=== PATIENT | male | born 1955 | race African-American/Black ===

== ENCOUNTER 2021-02-21 17:44 | Emergency (ER) | payer MEDICAID ==
[~2021-02-21] VITALS: Ht 177.8 cm; Wt 68.0 kg
[2021-02-21] MEDS ORDERED: IBUPROFEN 400MG TABLET PO ONE (19:00)
[2021-02-21] MEDS ORDERED: ACET-2708 MT (19:29)
[2021-02-21 20:32] VITALS: BP 111/74
== END 2021-02-21 20:31 | disposition home or self-care (01) ==
LOC: ER 17:44
DX: M79.672 Pain in left foot (principal); M79.671 Pain in right foot; R03.0 Elevated blood-pressure reading, without diagnosis of hypertension; Z59.0 Homelessness
CPT/HCPCS: 99283

== ENCOUNTER 2021-07-28 17:12 | Inpatient (IN) | payer MEDICAID ==
[~2021-07-28] VITALS: Ht 177.8 cm; Wt 62.1 kg
[~2021-07-28 17:12] MED LIST: ACET-2708 MT
[2021-07-28] MEDS ORDERED: PIPERACILLIN/TAZ 3.375G PREMIX 50 ML IV ONE (18:30)
[2021-07-28] MEDS ORDERED: SODIUM CHLORIDE 0.9% 1000ML BAG (SEPSIS BOLUS) IV ONE (18:30)
[2021-07-28] MEDS ORDERED: CLINDAMYCIN 600 MG in DEXTROSE 5% WATER 50 ML IV ONE (18:30)
[2021-07-28] MEDS ORDERED: VANCOMYCIN 1 G PREMIX 200 ML IV ONE (18:30)
[2021-07-28] MEDS ORDERED: CLINDAMYCIN 600MG PREMIX 50 ML IV SCH (18:30)
[2021-07-28 19:16] LABS: HEMATOCRIT. 30.1 % (42.0-52.0); HEMOGLOBIN. 10.3 g/dL (14.0-18.0); MEAN CORPUSCULAR HEMOGLOBIN 31.5 pg (28.0-32.0); MEAN CORPUSCULAR VOLUME 92.1 fL (80.0-94.0); MEAN PLATELET VOLUME 9.8 fl (7.4-10.4); PLATELET 309 x1000/uL (130-400); RED BLOOD CELL COUNT 3.27 mill/uL (4.7-6.1); RED CELL DISTRIBUTION WIDTH 11.5 % (11.6-14.6)
[2021-07-28 19:25] LABS: CHLORIDE 95 mEq/L (98-107)
[2021-07-28 19:28] LABS: ETHANOL BLOOD < 10 mg/dL; INR 1.1; PARTIAL THROMBOPLASTIN TIME 28.2 sec (23.4-31.0); PROTHROMBIN TIME 11.4 sec (9.6-11.0)
[2021-07-28] MEDS ORDERED: INSULIN REGULAR (HUMULIN R) 300UNITS/3ML VIAL SUBCUT ONE (20:00)
[2021-07-28 20:30] LABS: PLATELET ESTIMATE NORMAL
[2021-07-29] VITALS (7 sets, daily range): BP systolic 117–151; BP diastolic 75–86
[2021-07-29] MEDS ORDERED: DEXTROSE 50% WATER 50ML SYRINGE IV PRN (01:30)
[2021-07-29] MEDS ORDERED: NALOXONE HCL 0.4MG/ML VIAL IV PRN (02:00)
[2021-07-29] MEDS: PIPERACILLIN/TAZOBACTAM 3.375 G in DEXTROSE 5% WATER 50 ML IV SCH ×3 (05:38→22:54)
[2021-07-29] MEDS: VANCOMYCIN 750 MG PREMIX 150 ML IV SCH ×3 (05:38→20:19)
[2021-07-29 06:47] LABS: BASOPHILS % 0.5 % (0.0-2.0); EOSINOPHILS % 0.4 % (0.0-5.0); HEMATOCRIT. 29.3 % (42.0-52.0); HEMOGLOBIN. 10.1 g/dL (14.0-18.0); LYMPHOCYTES % 7.2 % (20.0-50.0); MEAN CORPUSCULAR HEMOGLOBIN 31.7 pg (28.0-32.0); MEAN CORPUSCULAR VOLUME 91.8 fL (80.0-94.0); MEAN PLATELET VOLUME 9.5 fl (7.4-10.4); MONOCYTES % 6.7 % (2.0-8.0); NEUTROPHILS % 85.2 % (40.0-76.0); PLATELET 287 x1000/uL (130-400); RED BLOOD CELL COUNT 3.19 mill/uL (4.7-6.1); RED CELL DISTRIBUTION WIDTH 11.7 % (11.6-14.6)
[2021-07-29 06:52] LABS: CHLORIDE 102 mEq/L (98-107)
[2021-07-29 07:00] LABS: HDL CHOLESTEROL 14 mg/dL (40-59)
[2021-07-29 07:05] LABS: LDL CHOLESTEROL 73 mg/dL (5-100)
[2021-07-29] MEDS: BLOOD SUGAR DIAGNOSTIC STRIP TEST SCH ×4 (07:23→20:20)
[2021-07-29] MEDS: INSULIN LISPRO 100 UNITS/ML SUBCUT SCH ×4 (07:59→20:20)
[2021-07-29] MEDS: INSULIN GLARGINE UD 100 UNITS/ML SYR SUBCUT SCH ×2 (10:05→22:54)
[2021-07-29] MEDS: ACETAMINOPHEN 325MG TABLET PO PRN (16:33)
[2021-07-29] MEDS: ENOXAPARIN 40MG/0.4ML SYR SUBCUT SCH (20:20)
[2021-07-29] MEDS: HYDROCODONE/ACETAMINOPHEN 5/325MG TABLET PO PRN (20:38)
[2021-07-30] VITALS: BP 139/89
[2021-07-30 04:00] VITALS: BP 131/71
[2021-07-30] MEDS: VANCOMYCIN 750 MG PREMIX 150 ML IV SCH ×3 (04:08→21:17)
[2021-07-30 05:31] LABS: HEMATOCRIT. 28.1 % (42.0-52.0); HEMOGLOBIN. 9.5 g/dL (14.0-18.0); MEAN CORPUSCULAR HEMOGLOBIN 31.2 pg (28.0-32.0); MEAN CORPUSCULAR VOLUME 92.3 fL (80.0-94.0); MEAN PLATELET VOLUME 9.6 fl (7.4-10.4); PLATELET 292 x1000/uL (130-400); RED BLOOD CELL COUNT 3.05 mill/uL (4.7-6.1); RED CELL DISTRIBUTION WIDTH 11.8 % (11.6-14.6)
[2021-07-30] MEDS: PIPERACILLIN/TAZOBACTAM 3.375 G in DEXTROSE 5% WATER 50 ML IV SCH ×3 (05:44→22:35)
[2021-07-30 06:07] LABS: CHLORIDE 99 mEq/L (98-107)
[2021-07-30 06:17] LABS: VANCOMYCIN TROUGH 15.6 ug/mL (5.0-10.0)
[2021-07-30] MEDS: BLOOD SUGAR DIAGNOSTIC STRIP TEST SCH ×4 (07:20→20:43)
[2021-07-30 08:10] VITALS: BP 140/80
[2021-07-30] MEDS: INSULIN LISPRO 100 UNITS/ML SUBCUT SCH ×4 (08:26→20:42)
[2021-07-30] MEDS: ACETAMINOPHEN 325MG TABLET PO PRN (08:36)
[2021-07-30] MEDS: INSULIN GLARGINE UD 100 UNITS/ML SYR SUBCUT SCH ×2 (11:36→21:18)
[2021-07-30 12:20] VITALS: BP 128/80
[2021-07-30 15:36] LABS: PLATELET ESTIMATE NORMAL
[2021-07-30 16:00] VITALS: BP 130/76
[2021-07-30 20:00] VITALS: BP 140/81
[2021-07-30] MEDS: ENOXAPARIN 40MG/0.4ML SYR SUBCUT SCH (20:42)
[2021-07-31] VITALS: BP 135/83
[2021-07-31 04:00] VITALS: BP 137/72
[2021-07-31] MEDS: VANCOMYCIN 750 MG PREMIX 150 ML IV SCH ×3 (04:13→20:44)
[2021-07-31] MEDS: PIPERACILLIN/TAZOBACTAM 3.375 G in DEXTROSE 5% WATER 50 ML IV SCH ×3 (05:22→23:19)
[2021-07-31 06:21] LABS: HEMATOCRIT. 29.5 % (42.0-52.0); MEAN CORPUSCULAR HEMOGLOBIN 31.5 pg (28.0-32.0); MEAN CORPUSCULAR VOLUME 92.4 fL (80.0-94.0); MEAN PLATELET VOLUME 9.2 fl (7.4-10.4); PLATELET 302 x1000/uL (130-400); RED BLOOD CELL COUNT 3.19 mill/uL (4.7-6.1)
[2021-07-31 06:27] LABS: CHLORIDE 98 mEq/L (98-107)
[2021-07-31] MEDS: BLOOD SUGAR DIAGNOSTIC STRIP TEST SCH ×4 (07:20→20:45)
[2021-07-31] MEDS: INSULIN LISPRO 100 UNITS/ML SUBCUT SCH ×4 (07:50→20:44)
[2021-07-31] MEDS: INSULIN GLARGINE UD 100 UNITS/ML SYR SUBCUT SCH ×2 (10:00→23:20)
[2021-07-31] MEDS ORDERED: IOHEXOL-350 100 ML BOTTLE ONE (11:56)
[2021-07-31 12:00] VITALS: BP 143/70
[2021-07-31 14:03] LABS: PLATELET ESTIMATE NORMAL
[2021-07-31 16:00] VITALS: BP 128/63
[2021-07-31] MEDS ORDERED: LIDOCAINE HCL 1% 20ML VIAL (Pyxis) INJ ONE (16:30)
[2021-07-31] MEDS ORDERED: POLYMYXIN B SULFATE 500000 UNITS/VIAL ONE (16:30)
[2021-07-31] MEDS ORDERED: BUPIVACAINE HCL/PF 0.5% (5MG/ML) 10ML ONE (16:30)
[2021-07-31] MEDS ORDERED: MIDAZOLAM HCL 2 MG/2 ML VIAL ONE (18:45)
[2021-07-31] MEDS ORDERED: PROPOFOL 200MG/20ML VIAL IV ONE (18:45)
[2021-07-31] MEDS ORDERED: FENTANYL CITRATE/PF 50MCG/ML 2ML VIAL ONE (18:45)
[2021-07-31] MEDS ORDERED: HYDROMORPHONE HCL/PF 2MG/ML CPJ IV PRN (19:00)
[2021-07-31] MEDS ORDERED: ONDANSETRON HCL 4MG/2ML INJ IV PRN (19:00)
[2021-07-31] MEDS ORDERED: MEPERIDINE HCL/PF 25MG/ML CPJ IV PRN (19:00)
[2021-07-31] MEDS ORDERED: LABETALOL 5MG/ML SYR 20 MG/4 ML SYRINGE IV PRN (19:00)
[2021-07-31 20:00] VITALS: BP 134/68
[2021-07-31] MEDS ORDERED: DEXAMETHASONE 4MG/ML 1ML VIAL ONE (20:15)
[2021-07-31] MEDS: ENOXAPARIN 40MG/0.4ML SYR SUBCUT SCH (20:45)
[2021-08-01] VITALS: BP 153/78
[2021-08-01 04:00] VITALS: BP 149/88
[2021-08-01] MEDS: VANCOMYCIN 750 MG PREMIX 150 ML IV SCH ×3 (04:32→21:28)
[2021-08-01 06:09] LABS: CHLORIDE 97 mEq/L (98-107)
[2021-08-01 06:10] LABS: HEMATOCRIT. 30.4 % (42.0-52.0); HEMOGLOBIN. 10.1 g/dL (14.0-18.0); MEAN CORPUSCULAR VOLUME 93.2 fL (80.0-94.0); MEAN PLATELET VOLUME 9.3 fl (7.4-10.4); PLATELET 333 x1000/uL (130-400); RED BLOOD CELL COUNT 3.27 mill/uL (4.7-6.1); RED CELL DISTRIBUTION WIDTH 11.9 % (11.6-14.6)
[2021-08-01] MEDS: PIPERACILLIN/TAZOBACTAM 3.375 G in DEXTROSE 5% WATER 50 ML IV SCH ×3 (06:20→22:42)
[2021-08-01] MEDS: BLOOD SUGAR DIAGNOSTIC STRIP TEST SCH ×4 (07:43→21:28)
[2021-08-01 08:00] VITALS: BP 146/80
[2021-08-01] MEDS: INSULIN LISPRO 100 UNITS/ML SUBCUT SCH ×4 (08:18→21:00)
[2021-08-01] MEDS: INSULIN GLARGINE UD 100 UNITS/ML SYR SUBCUT SCH ×2 (10:23→21:29)
[2021-08-01 12:00] VITALS: BP 112/66
[2021-08-01 14:24] LABS: PLATELET ESTIMATE NORMAL
[2021-08-01 16:00] VITALS: BP 119/78
[2021-08-01 20:00] VITALS: BP 127/76
[2021-08-01] MEDS: ENOXAPARIN 40MG/0.4ML SYR SUBCUT SCH (21:28)
[2021-08-01] MEDS: HYDROCODONE/ACETAMINOPHEN 5/325MG TABLET PO PRN (21:30)
[2021-08-02] VITALS (7 sets, daily range): BP systolic 126–144; BP diastolic 61–83
[2021-08-02] MEDS: VANCOMYCIN 750 MG PREMIX 150 ML IV SCH ×2 (04:16→12:32)
[2021-08-02] MEDS: PIPERACILLIN/TAZOBACTAM 3.375 G in DEXTROSE 5% WATER 50 ML IV SCH ×2 (06:08→15:52)
[2021-08-02] MEDS: BLOOD SUGAR DIAGNOSTIC STRIP TEST SCH ×4 (06:13→21:00)
[2021-08-02] MEDS: INSULIN LISPRO 100 UNITS/ML SUBCUT SCH ×4 (07:37→21:00)
[2021-08-02] MEDS: INSULIN GLARGINE UD 100 UNITS/ML SYR SUBCUT SCH ×2 (09:26→22:00)
[2021-08-02] MEDS ORDERED: LANTUSUD SUBCUT (17:32)
[2021-08-02] MEDS ORDERED: METF-416 MT (17:32)
[2021-08-02] MEDS ORDERED: CEFTRIAXONE 2 G PREMIX 50 ML IV SCH (18:00)
[2021-08-02] MEDS ORDERED: CEFTRIAXONE 2 G in DEXTROSE 5% WATER 50 ML IV SCH (20:00)
[2021-08-02] MEDS: ENOXAPARIN 40MG/0.4ML SYR SUBCUT SCH (22:29)
[2021-08-03] VITALS (7 sets, daily range): BP systolic 104–142; BP diastolic 63–81
[2021-08-03 04:47] LABS: CHLORIDE 101 mEq/L (98-107)
[2021-08-03] MEDS: INSULIN LISPRO 100 UNITS/ML SUBCUT SCH ×4 (05:56→22:10)
[2021-08-03] MEDS: BLOOD SUGAR DIAGNOSTIC STRIP TEST SCH ×4 (05:56→22:30)
[2021-08-03] MEDS: LEVOFLOXACIN 500MG TABLET PO SCH (08:57)
[2021-08-03] MEDS: INSULIN GLARGINE UD 100 UNITS/ML SYR SUBCUT SCH ×2 (09:36→23:38)
[2021-08-03 12:24] LABS: *BARBITURATES SCREEN URINE NEGATIVE (NEGATIVE); *BENZODIAZEPINES SCREEN URINE NEGATIVE (NEGATIVE)
[2021-08-03 12:25] LABS: *AMPHETAMINES SCREEN URINE NEGATIVE (NEGATIVE); *COCAINE SCREEN URINE NEGATIVE (NEGATIVE); CANNABINOID URINE SCREEN NEGATIVE (NEGATIVE); METHADONE URINE SCREEN NEGATIVE (NEGATIVE); OPIATES URINE SCREEN PRESUMTIVE POSITIVE (NEGATIVE); PHENCYCLIDINE URINE SCREEN NEGATIVE (NEGATIVE)
[2021-08-03] MEDS ORDERED: LEVO500T89 MT (14:26)
[2021-08-03] MEDS: ENOXAPARIN 40MG/0.4ML SYR SUBCUT SCH (21:52)
[2021-08-04 05:06] VITALS: BP 144/85
[2021-08-04] MEDS: BLOOD SUGAR DIAGNOSTIC STRIP TEST SCH ×4 (07:20→20:53)
[2021-08-04] MEDS: INSULIN LISPRO 100 UNITS/ML SUBCUT SCH ×4 (07:50→21:10)
[2021-08-04 08:00] VITALS: BP 135/83
[2021-08-04] MEDS: LEVOFLOXACIN 500MG TABLET PO SCH (10:09)
[2021-08-04] MEDS: INSULIN GLARGINE UD 100 UNITS/ML SYR SUBCUT SCH ×2 (10:12→21:09)
[2021-08-04 12:00] VITALS: BP 143/87
[2021-08-04 16:00] VITALS: BP 131/75
[2021-08-04 20:00] VITALS: BP 133/89
[2021-08-04] MEDS: ENOXAPARIN 40MG/0.4ML SYR SUBCUT SCH (21:07)
[2021-08-05] VITALS: BP 132/68
[2021-08-05 04:00] VITALS: BP 148/79
[2021-08-05] MEDS: BLOOD SUGAR DIAGNOSTIC STRIP TEST SCH ×4 (06:58→21:16)
[2021-08-05] MEDS: INSULIN LISPRO 100 UNITS/ML SUBCUT SCH ×4 (07:50→21:00)
[2021-08-05 08:00] VITALS: BP 130/74
[2021-08-05] MEDS: LEVOFLOXACIN 500MG TABLET PO SCH (09:35)
[2021-08-05] MEDS: INSULIN GLARGINE UD 100 UNITS/ML SYR SUBCUT SCH ×2 (09:41→21:19)
[2021-08-05 12:00] VITALS: BP 124/95
[2021-08-05 16:00] VITALS: BP 148/78
[2021-08-05 20:00] VITALS: BP 120/74
[2021-08-05] MEDS: ENOXAPARIN 40MG/0.4ML SYR SUBCUT SCH (21:18)
[2021-08-06] VITALS: BP 117/60
[2021-08-06 04:00] VITALS: BP 152/67
[2021-08-06] MEDS: BLOOD SUGAR DIAGNOSTIC STRIP TEST SCH ×4 (06:33→20:59)
[2021-08-06] MEDS: INSULIN LISPRO 100 UNITS/ML SUBCUT SCH ×4 (07:50→21:00)
[2021-08-06 08:00] VITALS: BP 124/80
[2021-08-06] MEDS: LEVOFLOXACIN 500MG TABLET PO SCH (09:47)
[2021-08-06] MEDS: INSULIN GLARGINE UD 100 UNITS/ML SYR SUBCUT SCH ×2 (09:48→21:05)
[2021-08-06 12:00] VITALS: BP 136/98
[2021-08-06 16:00] VITALS: BP 143/77
[2021-08-06 20:00] VITALS: BP 127/77
[2021-08-06] MEDS: ENOXAPARIN 40MG/0.4ML SYR SUBCUT SCH (20:59)
[2021-08-07] VITALS: BP 109/66
[2021-08-07 04:00] VITALS: BP 112/72
[2021-08-07] MEDS: BLOOD SUGAR DIAGNOSTIC STRIP TEST SCH ×2 (06:25→12:20)
[2021-08-07] MEDS: INSULIN LISPRO 100 UNITS/ML SUBCUT SCH ×2 (07:50→12:50)
[2021-08-07 08:00] VITALS: BP 144/82
[2021-08-07] MEDS: LEVOFLOXACIN 500MG TABLET PO SCH (10:04)
[2021-08-07] MEDS: INSULIN GLARGINE UD 100 UNITS/ML SYR SUBCUT SCH (10:06)
[2021-08-07 12:00] VITALS: BP 131/83
[2021-08-07 15:36] VITALS: BP 131/83
[2021-08-07 16:00] VITALS: BP 144/78
== END 2021-08-07 17:36 | DRG 710 ==
LOC: ER 17:12 → 6WST 19:48 → EDBEDREQTM 19:52 → EDBEDREQSVC 19:52 → EDBEDREQ 19:52 → ENRESERV 22:41 → 6EST 08-01 14:46
PROVIDERS: ADMIT Internal Medicine; ATTEND Internal Medicine
PROC: XW03396 Introduction of Ceftolozane/Tazobactam Anti-infective into Peripheral Vein, Percutaneous Approach, New Technology Group 6 (ICD-10-PCS; principal; 2021-07-28)
PROC: 0LBW0ZZ Excision of Left Foot Tendon, Open Approach (ICD-10-PCS; 2021-07-31)
PROC: 0Y6N0ZD Detachment at Left Foot, Partial 4th Ray, Open Approach (ICD-10-PCS; 2021-07-31)
PROC: 0Y6N0ZF Detachment at Left Foot, Partial 5th Ray, Open Approach (ICD-10-PCS; 2021-07-31)
DX: A41.9 Sepsis, unspecified organism (principal); M72.6 Necrotizing fasciitis; E43 Unspecified severe protein-calorie malnutrition; E11.52 Type 2 diabetes mellitus with diabetic peripheral angiopathy with gangrene; A48.0 Gas gangrene; E87.1 Hypo-osmolality and hyponatremia; L02.416 Cutaneous abscess of left lower limb; E11.621 Type 2 diabetes mellitus with foot ulcer; D64.9 Anemia, unspecified; L97.529 Non-pressure chronic ulcer of other part of left foot with unspecified severity; E11.65 Type 2 diabetes mellitus with hyperglycemia; E87.8 Other disorders of electrolyte and fluid balance, not elsewhere classified; Z20.822 Contact with and (suspected) exposure to COVID-19; F20.9 Schizophrenia, unspecified; E11.69 Type 2 diabetes mellitus with other specified complication; L02.612 Cutaneous abscess of left foot; M86.8X7 Other osteomyelitis, ankle and foot; Z60.2 Problems related to living alone; L03.116 Cellulitis of left lower limb; Z59.00 Homelessness unspecified; Z79.4 Long term (current) use of insulin; Z68.1 Body mass index [BMI] 19.9 or less, adult; Z79.899 Other long term (current) drug therapy
CPT/HCPCS: 36415; 71045; 73630; 75635; 80048; 80053; 80061; 80202; 80305; 80320; 82962; 83036; 83605; 84484; 85025; 86140; 86850; 86900; 87070; 87075; 87077; 87426; 88305; 88311; 93005; 93923; 93970; 97022; 97161; 99285; J0696; J1100; J1650; J1815; J2250; J2543; J2704; J3010; J3370; J3490; J7030; J7040; J7060; Q9967; G0480